=== PATIENT | female | born 1940 | race Hispanic/Latino ===

== ENCOUNTER 2017-03-13 12:35 | Outpatient (CLI) | payer MEDICARE ==
--- NOTE | 2017-03-13 16:29 | Mammography Report ---
BILATERAL DIGITAL SCREENING MAMMOGRAM with CAD: 03/13/17 12:35:00 CLINICAL: Routine screening. COMPARISON:01/04/16 FINDINGS: The breasts are heterogeneously dense, which may obscure small masses. No mass, architectural distortion or suspicious calcifications. IMPRESSION: No mammographic evidence of malignancy. BI-RADS CATEGORY: 1 - - Negative RECOMMENDATION: Routine mammographic screening in one year. COMMENT: Patient follow-up letters are generated by our [employer] application.
== END 2017-03-13 12:36 | disposition home or self-care (01) ==
LOC: MAMMO 12:35
PROVIDERS: ATTEND Family Medicine
DX: Z12.31 Encounter for screening mammogram for malignant neoplasm of breast (principal)
CPT/HCPCS: 77067; G0202

== ENCOUNTER 2018-05-18 18:15 | Emergency (ER) | payer MEDICARE ==
--- NOTE | 2018-05-18 18:54 | Emergency Department Report ---
ED Syncope HPI - General Chief Complaint: Syncope Stated Complaint: FELL/LT SIDE PAIN Time Seen by Provider: 05/18/18 18:44 - History of Present Illness Initial Comments: Patient is 77-year-old female with no significant past medical history except for seasonal allergy. Patient presented to the ER from our primary care office for evaluation of single episode of syncope happened on Thursday, 3 days ago. She stated that she was standing outside her front door and all of a sudden she became nauseous and dizzy and fell and hit her head on the left side. Patient stated that she remember everything. No loss of consciousness. Patient stated that she went back to her normal with no residual. Patient is complaining of scalp pain from the injury site. Patient denied any chest pain, shortness of breath, sweating, weakness numbness or tingling sensation. No bowel or bladder incontinence. Timing/Prior Episodes: no prior history Precipitating Factors: Positive: lightheadedness, nausea Context: standing Loss of Consciousness: no loss of consciousness Current Symptoms: back to normal - Related Data Allergies/Adverse Reactions: Allergies codeine Allergy (Unverified 01/04/16 11:37) Unknown Penicillins Allergy (Unverified 01/04/16 11:37) Rash prochlorperazine [From Compazine] Allergy (Unverified 01/04/16 11:38) Seizure prochlorperazine edisylate [From Compazine] Allergy (Unverified 01/04/16 11:38) Seizure prochlorperazine maleate [From Compazine] Allergy (Unverified 01/04/16 11:38) Seizure ED Review of Systems ROS: Stated complaint: FELL/LT SIDE PAIN Other details as noted in HPI Comment: All other systems reviewed and negative Constitutional: denies: chills, fever Respiratory: denies: cough, orthopnea, shortness of breath, SOB with exertion, wheezing Cardiovascular: denies: chest pain, palpitations Gastrointestinal: denies: abdominal pain, nausea, vomiting, diarrhea, cons tipation, hematemesis, melena, hematochezia Musculoskeletal: denies: back pain Neurological: denies: headache, weakness, numbness, paresthesias, confusion, abnormal gait ED Past Medical Hx - Past Medical History Previous Medical History?: Yes Hx Hypertension: Yes Additional medical history: Fibromyalgia - Surgical History Past Surgical History?: No - Social History Smoking Status: Never Smoker Substance Use Type: None ED Physical Exam - General Limitations: No Limitations General appearance: alert, in no apparent distress - Head Head exam: Present: atraumatic, normocephalic, normal inspection - Eye Eye exam: Present: normal appearance, PERRL - ENT ENT exam: Present: normal exam, normal orophraynx, mucous membranes moist - Neck Neck exam: Present: normal inspection, full ROM. Absent: tenderness, meningismus, lymphadenopathy, thyromegaly - Respiratory Respiratory exam: Present: normal lung sounds bilaterally. Absent: respiratory distress, wheezes, rales, rhonchi, chest wall tenderness, accessory muscle use, decreased breath sounds, prolonged expiratory - Cardiovascular Cardiovascular Exam: Present: regular rate, normal rhythm, normal heart sounds - GI/Abdominal GI/Abdominal exam: Present: soft, normal bowel sounds. Absent: distended, tenderness, guarding, rebound, rigid, organomegaly, mass, bruit, pulsatile mass, hernia - Extremities Exam Extremities exam: Present: normal inspection, full ROM, normal capillary refill. Absent: pedal edema, calf tenderness - Back Exam Back exam: Present: normal inspection, full ROM. Absent: tenderness, CVA tenderness (R), CVA tenderness (L), muscle spasm, paraspinal tenderness, vertebral tenderness - Neurological Exam Neurological exam: Present: alert, oriented X3, CN II-XII intact, normal gait, reflexes normal - Psychiatric Psychiatric exam: Present: normal mood - Skin Skin exam: Present: warm, intact, normal color ED Course Vital Signs 05/18/18 05/18/18 05/18/18 18:38 19:00 19:15 Temperature 98.7 F 98.3 F Pulse Rate 92 H 92 H 92 H Respiratory 14 15 17 Rate Blood Pressure 144/79 144/79 Blood Pressure 149/78 [Left] O2 Sat by Pulse 97 98 100 Oximetry 05/18/18 20:00 Temperature Pulse Rate 89 Respiratory 14 Rate Blood Pressure 132/79 Blood Pressure [Left] O2 Sat by Pulse 96 Oximetry ED Medical Decision Making - Lab Data Result diagrams: 05/18/18 18:59 05/18/18 18:59 - EKG Data -: EKG Interpreted by Fl EKG shows normal: sinus rhythm Rate: normal - EKG Data Interpretation: no acute changes - Radiology Data Radiology results: report reviewed Referring Physician: TIFF RANGEL Patient Name: INDIO CHERRY Date of : 1940 Sex: Female Report Date: 2018-05-18 Report Status: Finalized Findings [address] [address] Cat Scan Report Signed Patient: INDIO CHERRY MR#: [id number] : 1940 Acct:[id number] Age/Sex: 77 / F ADM Date: 05/18/18 Loc: ED Attending Dr: Ordering Physician: TIFF RANGEL Date of Service: 05/18/18 Procedure(s): CT head/brain wo con Accession Number(s): [id number] cc: TIFF RANGEL FINAL REPORT EXAM: CT HEAD WO CONTRAST HISTORY: BLACKED OUT TECHNIQUE: CT head without contrast PRIORS: None. FINDINGS: No acute intra-axial or extra-axial hemorrhage is identified. There is no evidence of midline shift or mass effect. The ventricles and sulci are within normal limits. Carrillo- white matter differentiation is intact. No acute parenchymal abnormalities seen. Bony calvarium is grossly intact. Visualized portions of the mastoids and paranasal sinuses are unremarkable. IMPRESSION: Negative CT head Transcribed By: Addie Dictated By: LISHA GONZALEZ MD Electronically Authenticated By: LISHA GONZALEZ MD Signed Date/Time: 05/18/181956 Referring Physician: TIFF RANGEL Patient Name: INDIO CHERRY Date of : 1940 Sex: Female Report Date: 2018-05-18 Report Status: Finalized Findings [address] [address] XRay Report Signed Patient: INDIO CHERRY MR#: [id number] : 1940 Acct:[id number] Age/Sex: 77 / F ADM Date: 05/18/18 Loc: ED Attending Dr: Ordering Physician: TIFF RANGEL Date of Service: 05/18/18 Procedure(s): XR chest 1V ap Accession Number(s): [id number] cc: TIFF RANGEL Fluoro Time In Minutes: FINAL REPORT EXAM: XRAY CHEST SINGLE VIEW HISTORY: syncope TECHNIQUE: upright single view chest PRIORS: None. FINDINGS: Cardiac and mediastinal contours are unremarkable. No focal pulmonary infiltrate is identified. No pleural fluid collection seen. Pulmonary vasculature is unremarkable. IMPRESSION: Negative single-view chest Transcribed By: CARMELA Dictated By: LISHA GONZALEZ MD Electronically Authenticated By: LISHA GONZALEZ MD Signed Date/Time: 05/18/182006 DD/ 04 TD/TT: 05/18/182004 DD/ 55 TD/TT: 05/18/181955 - Medical Decision Making Patient is 77-year-old female with no significant past medical history except for seasonal allergy. Patient presented to the ER from our primary care office for evaluation of single episode of syncope happened on Thursday, 3 days ago. She stated that she was standing outside her front door and all of a sudden she became nauseous and dizzy and fell and hit her head on the left side. Patient stated that she remember everything. No loss of consciousness. Patient stated that she went back to her normal with no residual. Patient is complaining of scalp pain from the injury site. Patient denied any chest pain, shortness of breath, sweating, weakness numbness or tingling sensation. No bowel or bladder incontinence. Patient evaluated by me multiple times. Patient remained asymptomatic. EKG is unremarkable. Chest x-ray is negative for acute findings. CT brain is negative for acute finding. Labs reviewed and is unremarkable. I advised the patient to follow his primary care physician in the next 2-3 days and to return to the ER if her symptoms recur. Critical care attestation.: If time is entered above; I have spent that time in minutes in the direct care of this critically ill patient, excluding procedure time. ED Disposition Clinical Impression: Syncope Disposition: DC-01 TO HOME OR SELFCARE Is pt being admited?: No Condition: Stable Instructions: Syncope (ED) Referrals: TEMO GASTELUM MD [Primary Care Provider] - 3-5 Days
[2018-05-18 19:12] LABS: Basophils % (Auto) 0.9 % (0.0-1.8); Eosinophils # (Auto) 0.2 K/mm3 (0.0-0.4); Eosinophils % (Auto) 3.7 % (0.0-4.3); Hematocrit 37.3 % (30.3-42.9); Hemoglobin 12.4 gm/dl (10.1-14.3); Lymphocytes # (Auto) 1.5 K/mm3 (1.2-5.4); Lymphocytes % (Auto) 27.5 % (13.4-35.0); Mean Corpuscular HGB Conc 33 % (30-34); Mean Corpuscular Volume 93 fl (79-97); Monocytes # (Auto) 0.5 K/mm3 (0.0-0.8); Monocytes % (Auto) 8.5 % (0.0-7.3); Platelet Count 231 K/mm3 (140-440); Red Blood Count 4.02 M/mm3 (3.65-5.03); Red Cell Distribution Width 13.4 % (13.2-15.2)
[2018-05-18 19:23] LABS: INR 0.94 (0.87-1.13); Partial Thromboplastin Time 21.5 Sec. (24.2-36.6)
[2018-05-18 19:25] LABS: BUN/Creatinine Ratio 16; Blood Urea Nitrogen 14 mg/dL (7-17); Calcium 9.1 mg/dL (8.4-10.2); Hemolysis Index 24
[2018-05-18 19:28] LABS: Alanine Aminotransferase 13 units/L (7-56); Albumin 4.2 g/dL (3.9-5); Bilirubin,Direct < 0.2 mg/dL (0-0.2)
--- NOTE | 2018-05-18 19:57 | Cat Scan Report ---
FINAL REPORT EXAM: CT HEAD WO CONTRAST HISTORY: BLACKED OUT TECHNIQUE: CT head without contrast PRIORS: None. FINDINGS: No acute intra-axial or extra-axial hemorrhage is identified. There is no evidence of midline shift or mass effect. The ventricles and sulci are within normal limits. Carrillo-white matter differentiation is intact. No acute parenchymal abnormalities seen. Bony calvarium is grossly intact. Visualized portions of the mastoids and paranasal sinuses are unre markable. IMPRESSION: Negative CT head
--- NOTE | 2018-05-18 20:07 | XRay Report ---
FINAL REPORT EXAM: XRAY CHEST SINGLE VIEW HISTORY: syncope TECHNIQUE: upright single view chest PRIORS: None. FINDINGS: Cardiac and mediastinal contours are unremarkable. No focal pulmonary infiltrate is identified. No pleural fluid collection seen. Pulmonary vasculature is unremarkable. IMPRESSION: Negative single-view chest
[2018-05-18 20:09] VITALS: BP 132/79
[2018-05-18 21:27] LABS: Bacteria,Urine 1+ /HPF (Negative); Bilirubin,Urine NEG (Negative); Blood,Urine NEG (Negative); Color,Urine Yellow (Yellow); Protein,Urine <15 mg/dL mg/dL (Negative); Urobilinogen,Urine < 2.0 mg/dL (<2.0)
[2018-05-18 21:32] LABS: WBC,Urine > 182.0 /HPF (0.0-6.0)
== END 2018-05-18 20:49 | disposition home or self-care (01) ==
LOC: ED 18:15
DX: R55 Syncope and collapse (principal); R11.0 Nausea; R42 Dizziness and giddiness; I10 Essential (primary) hypertension
CPT/HCPCS: 36415; 70450; 71045; 80048; 80076; 81001; 84484; 85025; 85610; 85730; 93005; 93010